=== PATIENT | female | born 1945 | race Caucasian/White ===

== ENCOUNTER 2017-12-08 17:20 | Emergency (ER) | payer MEDICARE, BC ==
[2017-12-08 17:35] VITALS: BP 172/78
--- NOTE | 2017-12-08 17:43 | UC ---
Complaint Female HPI - HPI Summary HPI Summary: Pt presents with pain with urination and pink color to her urine first noticed this morning. She has had a UTI in the past, but this was many years ago. No hx of kidney stone. Denies fever, chills, recent illness, abdominal pain, n/v/d/c. - History Of Current Complaint Chief Complaint: UCGU Stated Complaint: URINARY COMPLAINT Time Seen by Provider: 12/08/17 17:42 Hx Obtained From: Patient Onset/Duration: Sudden Onset Timing: Constant Severity Initially: Moderate Severity Currently: Moderate Pain Intensity: 7 Pain Scale Used: 0-10 Numeric Character: Sharp, Burning - Allergies/Home Medications Allergies/Adverse Reactions: Allergies Allergy/AdvReac Type Severity Reaction Status Date / Time fish oil Allergy Anaphylatic Verified 12/08/17 18:00 Shock latex Allergy Blisters Verified 12/08/17 18:00 reserpine Allergy Rash Verified 12/08/17 18:00 sulfamethoxazole Allergy Rash Verified 12/08/17 18:00 [From Bactrim] trimethoprim [From Bactrim] Allergy Rash Verified 12/08/17 18:00 adhesives Allergy Intermediate Blisters Uncoded 12/08/17 18:00 Home Medications: Home Medications Hydrochlorothiazide TAB* [Hydrodiuril TAB*] 25 mg PO DAILY 12/08/17 [History Confirmed 12/08/17] PMH/Surg Hx/FS Hx/Imm Hx Endocrine History: Dyslipidemia Cardiovascular History: Hypertension GI/ History: Gastroesophageal Reflux - Surgical History Surgical History: Yes Surgery Procedure, Year, and Place: hysterectomy d/t fibroids. arthroscopic left knee. tumor right hip removed--benign - Family History Known Family History: Positive: Hypertension - Social History Occupation: Retired Lives: With Family Alcohol Use: None Substance Use Type: None Smoking Status (MU): Never Smoked Tobacco Review of Systems Constitutional: Negative Skin: Negative Respiratory: Negative Cardiovascular: Negative Gastrointestinal: Negative Genitourinary: Dysuria, Hematuria, Frequency Neurological: Negative Psychological: Negative All Other Systems Reviewed And Are Negative: Yes Physical Exam - Summary Physical Exam Summary: GENERAL: NAD. WDWN. No pain distress. SKIN: No rashes, sores, ulcers, masses, lesions. NECK: Supple. Nontender. No lymphadenopathy. CHEST: CTAB. No r/r/w. No accessory muscle use. Breathing comfortably and in no distress. CV: RRR. Without m/r/g. Pulses intact. Brisk cap refill. ABDOMEN: Soft. NTTP. No distention or guarding. No organomegaly. No CVA tenderness. Bowel sounds present x4. NEURO: Alert. CN II-XII grossly intact. PSYCH: Age appropriate behavior. Triage Information Reviewed: Yes Vital Signs: Initial Vital Signs Temp 99.2 F 12/08/17 17:32 Pulse 81 12/08/17 17:32 Resp 14 12/08/17 17:32 BP 172/78 12/08/17 17:32 Pulse Ox 100 12/08/17 17:32 Complaint Female Dx - Course Course Of Treatment: UA shows 2+ protein, 3+ blood, and 3+ leuks. Will treat with macrobid and call with urine culture results. - Differential Dx/Diagnosis Provider Diagnoses: UTI Discharge - Sign-Out/Discharge Documenting (check all that apply): Discharge - Discharge Plan Condition: Stable Disposition: HOME Prescriptions: Nitrofurantoin Macrocrystals* [Macrodantin*] 100 mg PO BID #10 cap Patient Education Materials: Urinary Tract Infection in Women (DC) Referrals: Matt Hollis MD [Primary Care Provider] - Additional Instructions: If you develop a fever, shortness of breath, chest pain, new or worsening symptoms - please call your PCP or go to the ED. Your blood pressure was high at todays visit. Please see your primary provider within 4 weeks for recheck and re-evaluation. - Billing Disposition and Condition Condition: STABLE Disposition: HOME
[2017-12-08] MEDS ORDERED: Nitrofurantoin Macrocrystals* 50 MG CAP PO ONE (18:04)
== END 2017-12-08 18:11 | disposition home or self-care (01) ==
LOC: UCCORT 17:20
DX: N39.0 Urinary tract infection, site not specified (principal); Z88.2 Allergy status to sulfonamides; Z88.8 Allergy status to other drugs, medicaments and biological substances
CPT/HCPCS: 81003; 87086; 99212; A9270-GY; G0463

== ENCOUNTER 2019-03-12 14:06 | Emergency (ER) | payer MEDICARE, BC ==
[2019-03-12 14:32] VITALS: BP 131/67
--- NOTE | 2019-03-12 14:39 | UC ---
Skin Complaint HPI - HPI Summary HPI Summary: Pt presents with c/o itchy, tender insect bite under left upper arm. Pt c/o of enlarging red washoe with central clearing. Pt was gardening on 03/08/19 and was bite on same day. Unsure what bit her. - History of Current Complaint Chief Complaint: UCSkin Time Seen by Provider: 03/12/19 14:33 Stated Complaint: SKIN CONCERN LT ARM-INSECT BITE Hx Obtained From: Patient ?: No Onset/Duration: Sudden Onset, Lasting Days, Still Present Skin Exposure Onset/Duration: Days Ago Timing: Constant Onset Severity: Mild Current Severity: Mild Pain Intensity: 3 Location: Discrete - left upper arm near armpit Character: Pruritus, Redness Aggravating Factor(s): Nothing Alleviating Factor(s): Nothing Associated Signs & Symptoms: Positive: Rash Related History: Insect Bite/Sting - Allergy/Home Medications Allergies/Adverse Reactions: Allergies Allergy/AdvReac Type Severity Reaction Status Date / Time fish oil Allergy Anaphylatic Verified 03/12/19 14:27 Shock latex Allergy Blisters Verified 03/12/19 14:27 reserpine Allergy Rash Verified 03/12/19 14:27 sulfamethoxazole Allergy Rash Verified 03/12/19 14:27 [From Bactrim] trimethoprim [From Bactrim] Allergy Rash Verified 03/12/19 14:27 adhesives Allergy Intermediate Blisters Uncoded 03/12/19 14:27 PMH/Surg Hx/FS Hx/Imm Hx Previously Healthy: Yes - Surgical History Surgical History: Yes Surgery Procedure, Year, and Place: hysterectomy d/t fibroids. arthroscopic left knee. tumor right hip removed--benign - Family History Known Family History: Positive: Hypertension - Social History Occupation: Retired Lives: With Family Alcohol Use: None Substance Use Type: None Smoking Status (MU): Former Smoker Type: Cigarettes Length of Time of Smoking/Using Tobacco: 2 PPD X 3 Years Have You Smoked in the Last Year: No When Did the Patient Quit Smoking/Using Tobacco: 1966 - Immunization History Vaccination Up to Date: Yes Review of Systems All Other Systems Reviewed And Are Negative: Yes Constitutional: Positive: Negative Skin: Positive: Rash Eyes: Positive: Negative ENT: Positive: Negative Respiratory: Positive: Negative Cardiovascular: Positive: Negative Gastrointestinal: Positive: Negative Genitourinary: Positive: Negative Motor: Positive: Negative Neurovascular: Positive: Negative Musculoskeletal: Positive: Negative Neurological: Positive: Negative Psychological: Positive: Negative Is Patient Immunocompromised?: No Physical Exam Triage Information Reviewed: Yes Appearance: Well-Appearing Vital Signs: Initial Vital Signs Temp 98.3 F 03/12/19 14:20 Pulse 83 03/12/19 14:20 Resp 16 03/12/19 14:20 BP 131/67 03/12/19 14:20 Pulse Ox 99 03/12/19 14:20 Vital Signs Reviewed: Yes Eye Exam: Normal ENT Exam: Normal ENT: Positive: Hearing grossly normal Dental Exam: Normal Neck exam: Normal Respiratory: Positive: No respiratory distress Musculoskeletal Exam: Normal Neurological Exam: Normal Psychological Exam: Normal Skin Exam: Other - erythematous circular area under upper left arm/humerus with central clearing and and mild raised red center. pt c/o that area is very "itchy " and mildly tender. Course/Dx - Differential Diagnoses - Skin Complaint Differential Diagnoses: Tick Born Illness, Urticaria - Diagnoses Provider Diagnosis: Insect bite, Cellulitis of left arm Discharge - Sign-Out/Discharge Documenting (check all that apply): Patient Departure All imaging exams completed and their final reports reviewed: No Studies - Discharge Plan Condition: Stable Disposition: HOME Prescriptions: DOXYcycline CAP(*) [DOXYcycline 100MG CAP(*)] 100 mg PO Q12H #28 cap Patient Education Materials: Antihistamine (By mouth), Cellulitis (ED), Insect Bite or Sting (ED) Referrals: Matt Hollis MD [Primary Care Provider] - If Needed - Billing Disposition and Condition Condition: STABLE Disposition: Home
== END 2019-03-12 14:46 | disposition home or self-care (01) ==
LOC: UCCORT 14:06
DX: S40.862A Insect bite (nonvenomous) of left upper arm, initial encounter (principal); L03.114 Cellulitis of left upper limb; W57.XXXA Bitten or stung by nonvenomous insect and other nonvenomous arthropods, initial encounter; Y93.H2 Activity, gardening and landscaping; Y92.9 Unspecified place or not applicable; Z87.891 Personal history of nicotine dependence
CPT/HCPCS: 99212; G0463

== ENCOUNTER 2019-05-03 17:12 | Emergency (ER) | payer MEDICARE, BC ==
--- NOTE | 2019-05-03 17:55 | UC ---
Back Pain HPI - HPI Summary HPI Summary: 2 days ago, pt tripped and fell backwards onto a barbell. she is c/o pain in her mid and low back where she landed. she has taken Tylenol and a muscle relaxer which has helped. - History of Current Complaint Chief Complaint: UCBackPain Stated Complaint: LOWER BACK PAIN Time Seen by Provider: 05/03/19 17:21 Hx Obtained From: Patient Onset/Duration: Sudden Onset Timing: Constant Pain Intensity: 4 Aggravating Factor(s): Movement Associated Signs And Symptoms: Positive: Other - no saddle anesthesia. Negative : Weakness, Numbness, Tingling, Abdominal Pain, Flank Pain, Bladder Incontinence , Bowel Incontinence - Risk Factors Cauda Equina Risk Factors: Negative Epidural Abscess Risk Factors: Negative - Allergies/Home Medications Allergies/Adverse Reactions: Allergies Allergy/AdvReac Type Severity Reaction Status Date / Time fish oil Allergy Anaphylatic Verified 05/03/19 17:22 Shock latex Allergy Blisters Verified 05/03/19 17:22 reserpine Allergy Rash Verified 05/03/19 17:22 sulfamethoxazole Allergy Rash Verified 05/03/19 17:22 [From Bactrim] trimethoprim [From Bactrim] Allergy Rash Verified 05/03/19 17:22 adhesives Allergy Intermediate Blisters Uncoded 05/03/19 17:22 Home Medications: Home Medications tiZANidine TAB* [Zanaflex TAB*] 2 mg PO DAILY 05/03/19 [History Confirmed ] PMH/Surg Hx/FS Hx/Imm Hx - Additional Past Medical History Additional PMH: neck pain Cardiovascular History: Hypertension GI/ History: Gastroesophageal Reflux - Surgical History Surgical History: Yes Surgery Procedure, Year, and Place: hysterectomy d/t fibroids. arthroscopic left knee. tumor right hip removed--benign - Family History Known Family History: Positive: Hypertension - Social History Lives: With Family Alcohol Use: None Substance Use Type: None Smoking Status (MU): Former Smoker Type: Cigarettes Length of Time of Smoking/Using Tobacco: 2 PPD X 3 Years Have You Smoked in the Last Year: No When Did the Patient Quit Smoking/Using Tobacco: 1966 - Immunization History Vaccination Up to Date: Yes Review of Systems All Other Systems Reviewed And Are Negative: No Constitutional: Negative: Fever, Chills Skin: Negative: Rash Gastrointestinal: Negative: Abdominal Pain Motor: Positive: Decreased ROM - low back. Negative: Weakness Musculoskeletal: Negative: Myalgia Neurological: Negative: Paresthesia, Numbness Physical Exam Triage Information Reviewed: Yes Appearance: Well-Appearing Vital Signs: Initial Vital Signs Temp 98.4 F 05/03/19 17:24 Pulse 84 05/03/19 17:24 Resp 16 05/03/19 17:24 BP 143/80 05/03/19 17:24 Pulse Ox 99 05/03/19 17:24 Vital Signs Reviewed: Yes Eyes: Positive: Conjunctiva Clear Neck: Positive: Supple, Nontender, No Lymphadenopathy Respiratory: Positive: Lungs clear, Normal breath sounds Cardiovascular: Positive: RRR, No Murmur Abdomen Description: Positive: Nontender, No Organomegaly, Soft. Negative: Pulsatile Mass Musculoskeletal: Positive: Other: - neck/back=no gross deformity, swelling or discoloration. tender over lower throacic and lumbar regions. rom limited due to pain. 5/5 strength, 2+ reflexes and sesastion intactx4. no saddle anesthesia. staedy gait. Diagnostics - Laboratory Lab Results: u/a=trace leuks. no blood. culture pending. - Radiology No standard instances Radiology Interpretation Completed By: ED Physician - t spine=deg changes. l spine=spondyolisthesis L4/5, deg changes. Back Pain Course/Dx - Course Course Of Treatment: xra s d/w Dr Zazueta. CT lumbar spine ordered and pt care transferred to Dr Zazueta at 18:27. - Differential Dx/Diagnosis Differential Diagnosis/HQI/PQRI: Other - non toxic. no acute abdomen. no blood in urine. no concern for cauda equina. Provider Diagnosis: Back pain Discharge - Sign-Out/Discharge Documenting (check all that apply): Sign-Out Patient Signing out patient TO: Savanna Zazueta All imaging exams completed and their final reports reviewed: No - Discharge Plan Referrals: Matt Hollis MD [Primary Care Provider] - - Attestation Statements Provider Attestation: I was available for consult. This patient was seen by the [facility]. The patient was not presented to, seen by, or examined by me. -Floyd
[2019-05-03 20:07] VITALS: BP 155/83
[2019-05-03] MEDS ORDERED: traMADol TAB* 50 MG PO ONE (20:43)
--- NOTE | 2019-05-03 21:09 | UC ---
- Progress Note Progress Note: Patient was received in signout from Beverly Starkey awaiting her CT report patient had a mechanical fall several days ago and has ongoing pain in her mid low back. X-ray was concerning for subluxation of L4-L5. CT shows a transverse nondisplaced fracture of the no concern for acute injury L4-L5. Reviewed with patient. We'll discharge home with tramadol. Patient follow-up with PCP. Strict rest precautions related to narcotics. Patient comfortable and plan. Patient Name: KARI TREADWELL Medical Record#: [id number] Ordering Physician: Savanna Zazueta MD Acct.#: [id number] : 1945 Age: 73 Sex: F Location: [facility] Exam Date: 05/03/191828 ADM Status: [facility] ER Order Information: CT SPINE LUMBAR W/O Accession Number: [id number] CPT: 54667 EXAM: CT Lumbar Spine Without Contrast EXAM DATE/TIME: 05/03/2019 7:24 PM CLINICAL HISTORY: 73 years old, female; Injury or trauma; Fall; Initial encounter; Blunt trauma (contusions or hematomas); Additional info: PT fell backwards 2 days ago, striking her RT mid to lower back on a metal weight bar, pain RT sided low back TECHNIQUE: Imaging protocol: Computed tomography images of the lumbar spine without contrast. Coronal and sagittal reformatted images were created and reviewed. Radiation optimization: All CT scans at this facility use at least one of these dose optimization techniques: automated exposure control; mA and/or kV adjustment per patient size (includes targeted exams where dose is matched to clinical indication); or iterative reconstruction. COMPARISON: [facility] CT SPINE LUMBA 05/03/2019 7:19 PM FINDINGS: Vertebrae: Nondisplaced fracture of the right L1 transverse process. L5 vertebral body hemangioma without aggressive features. Post procedure changes of the right ilium. Diffuse degenerative changes of the lumbar facet joints. Anterolisthesis at the L4-5 level without identified pars defects. No aggressive lesion. Discs/Spinal canal/Neural foramina: Mild disc space narrowing at the L4-5 level with bulging central disc and mild compromise of the spinal canal. Mild disc space narrowing at the L5-S1 level with bulging central disc and mild compromise of the spinal canal. Gallbladder and bile ducts: Cholecystectomy clips. No biliary dilatation. Kidneys and ureters: Small left renal cyst measuring less than 1 cm. No additional imaging or followup required based on appearance. Vasculature: Atherosclerotic calcification without aneurysm. Soft tissues: Unremarkable. IMPRESSION: Nondisplaced fracture of the right L1 transverse process. Multilevel degenerative changes, most pronounced at L4-5 and L5-S1. To contact [facility] with a general question: [facility] - [phone] For direct physician to physician contact: Physician Hotline - [phone] [facility] ([facility] Facility ID #[id number]) <Electronically signed by Diego Summers MD in OV> 05/03/192025 This report is only to be considered final once signed by the Provider(s) as displayed in the "<Electronically Signed by >" field (s). Absence of a signature indicates the report is in a draft status and still needs to be finalized. In the event this document was created by someone other than the signing Provider, the individual initiating the document will be listed in the "Entered by:" or "Dictated by:" talamantes. 1 of 2 Course/Dx - Diagnoses Provider Diagnoses: Back pain Discharge ED - Sign-Out/Discharge Documenting (check all that apply): Patient Departure All imaging exams completed and their final reports reviewed: No - Discharge Plan Condition: Stable Disposition: HOME Prescriptions: traMADol TAB* [Ultram*] 25 mg PO Q8H PRN #10 tab MDD 3 PRN Reason: severe pain Patient Education Materials: Thoracolumbar Fracture (ED) Referrals: Matt Hollis MD [Primary Care Provider] - (Call Sunday for an appointment) Additional Instructions: As discussed, you have a nondisplaced break to the side of the bones in your back. This does not require any special surgical intervention. However, because of these you may have ongoing pain for 2-3 weeks. The right following is recommended: - Okay to take Tylenol every 6-8 hours as needed for pain. - Okay to take tramadol for severe pain. This medication is sedating. Do not drive, operate equipment, or drink alcohol and she was medication effect shoe. - do NOT take Tramadol AND muscle relaxer at the same time - this may cause excessive drowsiness - placing a pillow between your knees when you sleep may give you some relief - Okay to apply heat to the area of injury. [id number] muscles are warm slow gentle stretching exercises may be helpful. - Contact your primary care doctor on Sunday to schedule follow-up appointment this coming week. If you have any questions or concerns (ex increased pain, leg numbness or tingling, difficulty with urination) is recommended you prescribed for further treatment and evaluation. - Billing Disposition and Condition Condition: STABLE Disposition: Home
--- NOTE | 2019-05-04 09:53 | UC ---
- Progress Note Progress Note: X-ray reports reviewed, no change in treatment plan. - Results/Orders Results/Orders: L-S Spine: IMPRESSION: OSTEOPENIA. DEGENERATIVE DISC DISEASE AND OSTEOARTHRITIS. Thoracic spine: IMPRESSION: OSTEOPENIA. DEGENERATIVE DISC DISEASE. Course/Dx - Diagnoses Provider Diagnoses: Back pain Discharge - Sign-Out/Discharge Documenting (check all that apply): Post-Discharge Follow Up All imaging exams completed and their final reports reviewed: Yes - Discharge Plan Condition: Stable Disposition: HOME Prescriptions: traMADol TAB* [Ultram*] 25 mg PO Q8H PRN #10 tab MDD 3 PRN Reason: severe pain Patient Education Materials: Thoracolumbar Fracture (ED) Referrals: Matt Hollis MD [Primary Care Provider] - (Call Sunday for an appointment) Additional Instructions: As discussed, you have a nondisplaced break to the side of the bones in your back. This does not require any special surgical intervention. However, because of these you may have ongoing pain for 2-3 weeks. The right following is recommended: - Okay to take Tylenol every 6-8 hours as needed for pain. - Okay to take tramadol for severe pain. This medication is sedating. Do not drive, operate equipment, or drink alcohol and she was medication effect shoe. - do NOT take Tramadol AND muscle relaxer at the same time - this may cause excessive drowsiness - placing a pillow between your knees when you sleep may give you some relief - Okay to apply heat to the area of injury. [id number] muscles are warm slow gentle stretching exercises may be helpful. - Contact your primary care doctor on Sunday to schedule follow-up appointment this coming week. If you have any questions or concerns (ex increased pain, leg numbness or tingling, difficulty with urination) is recommended you prescribed for further treatment and evaluation. - Billing Disposition and Condition Condition: STABLE Disposition: Home
== END 2019-05-03 20:59 | disposition home or self-care (01) ==
LOC: UCCORT 17:12
DX: M54.5 Low back pain (principal); I10 Essential (primary) hypertension; Z87.891 Personal history of nicotine dependence
CPT/HCPCS: 72070; 72100; 72131; 81003; 87086; 99212; A9270-GY; G0463

== ENCOUNTER 2019-10-31 12:47 | Emergency (ER) | payer MEDICARE, BC ==
[2019-10-31 13:36] VITALS: BP 172/90
--- NOTE | 2019-10-31 14:53 | UC ---
Complaint Female HPI - HPI Summary HPI Summary: 73-year-old female presents with 3 day history of dysuria, frequency, and urgency. Associated with some mild suprapubic and lower back discomfort. Denies fever, chills, flank pain, nausea, vomiting, hematuria, vaginal discharge or itching. - History Of Current Complaint Chief Complaint: UCGU Stated Complaint: URINARY COMPLAINT Time Seen by Provider: 10/31/19 14:36 Hx Obtained From: Patient Pain Intensity: 0 - Allergies/Home Medications Allergies/Adverse Reactions: Allergies Allergy/AdvReac Type Severity Reaction Status Date / Time fish oil Allergy Anaphylatic Verified 10/31/19 13:36 Shock latex Allergy Blisters Verified 10/31/19 13:36 reserpine Allergy Rash Verified 10/31/19 13:36 sulfamethoxazole Allergy Rash Verified 10/31/19 13:36 [From Bactrim] trimethoprim [From Bactrim] Allergy Rash Verified 10/31/19 13:36 adhesives Allergy Intermediate Blisters Uncoded 10/31/19 13:36 PMH/Surg Hx/FS Hx/Imm Hx Endocrine History: Dyslipidemia Cardiovascular History: Hypertension GI/ History: Gastroesophageal Reflux Psychological History: Depression - Surgical History Surgical History: Yes Surgery Procedure, Year, and Place: hysterectomy d/t fibroids. arthroscopic left knee. tumor right hip removed--benign - Family History Known Family History: Positive: Hypertension - Social History Occupation: Retired Lives: With Family Alcohol Use: None Substance Use Type: None Smoking Status (MU): Former Smoker Type: Cigarettes Length of Time of Smoking/Using Tobacco: 2 PPD X 3 Years Have You Smoked in the Last Year: No When Did the Patient Quit Smoking/Using Tobacco: 1966 - Immunization History Vaccination Up to Date: Yes Review of Systems All Other Systems Reviewed And Are Negative: Yes Constitutional: Negative: Fever, Chills Respiratory: Positive: Negative Cardiovascular: Positive: Negative Gastrointestinal: Positive: Abdominal Pain - Suprapubic. Negative: Vomiting, Nausea Genitourinary: Positive: Dysuria, Frequency, Urgency. Negative: Hematuria, Vaginal/Penile Itching, Vaginal/Penile Discharge, Abnormal Bleeding Musculoskeletal: Positive: Negative Neurological/Mental Status: Positive: Negative Is Patient Immunocompromised?: No Physical Exam - Summary Physical Exam Summary: GENERAL APPEARANCE: Well developed, well nourished, alert and cooperative, and appears to be in no acute distress. CARDIAC: Normal S1 and S2. No S3, S4 or murmurs. Rhythm is regular. There is no peripheral edema, cyanosis or pallor. Extremities are warm and well perfused. Capillary refill is less than 2 seconds. Peripheral pulses intact. LUNGS: Clear to auscultation without rales, rhonchi, wheezing or diminished breath sounds. ABDOMEN: Positive bowel sounds. Soft, nondistend. Mild suprapubic tenderness. No guarding or rebound. No masses or hepatosplenomegally. No CVA tenderness. MUSKULOSKELETAL: ROM intact to all extremities. No joint erythema or tenderness. Normal muscular development. Normal gait. SKIN: Skin normal color, texture and turgor with no lesions or eruptions. Triage Information Reviewed: Yes Vital Signs: Initial Vital Signs Temp 98.8 F 10/31/19 13:30 Pulse 87 10/31/19 13:30 Resp 14 10/31/19 13:30 BP 172/90 10/31/19 13:30 Pulse Ox 100 10/31/19 13:30 Vital Signs Reviewed: Yes Complaint Female Dx - Course Course Of Treatment: 73-year-old female presents with 3 day history of dysuria, frequency, and urgency. Associated with some mild suprapubic and lower back discomfort. Denies fever, chills, flank pain, nausea, vomiting, hematuria, vaginal discharge or itching. Afebrile. Hypertensive otherwise vital signs stable. Patient had mild suprapubic tenderness without guarding or rebound, no CVA tenderness, and otherwise unremarkable exam. [id number] urinalysis showed 1 + leukocyte esterase, 3+ blood, 1+ bilirubin, 1+ ketones, and 3+ protein. Reviewed results with the patient. Discussed with patient that based on her symptoms and the urinalysis results will treat her empirically for urinary tract infection with Macrobid 100 mg twice a day 5 days and provide her with Pyridium 100 mg 3 times a day next 2 days to help with the discomfort. She is to follow-up with her primary care provider in 3-5 days if symptoms are not improving. Anticipatory guidance and warning symptoms were reviewed with the patient. Verbalizes understanding and agrees with plan of care. - Differential Dx/Diagnosis Differential Diagnosis/HQI/PQRI: Renal Colic, Urinary Tract Infection, Other - Vulvogaginitis Provider Diagnosis: UTI (urinary tract infection) Discharge ED - Sign-Out/Discharge Documenting (check all that apply): Patient Departure All imaging exams completed and their final reports reviewed: No Studies - Discharge Plan Condition: Stable Disposition: HOME Prescriptions: Nitrofurantoin Monohyd/M-Cryst [Macrobid 100 mg Capsule] 100 mg PO BID #10 cap Phenazopyridine TAB* [Pyridium 100 mg TAB*] 100 mg PO TID #6 tab Patient Education Materials: Urinary Tract Infection in Women (ED) Referrals: Matt Hollis MD [Primary Care Provider] - 3 Days Additional Instructions: Your urine test in the clinic today is suggestive of a urinary tract infection. We will start you on an antibiotic to treat for the infection. We will also send a urine culture today to see what bacteria grow out and make sure the antibiotic you were prescribed is appropriate to treat the infection. It will take 48-72 hours to get these results. We will contact you if there is any change in your treatment plan. Start Macrobid 1 tablet twice a day for 5 days. Take Pyridium 1 tablet every 8 hours for next 2 days to help with the discomfort. This medication will turn your urine an orange color. Drink plenty of fluids. To help prevent urinary tract infections: 1) Be sure to wipe from front to back. 2) Urinate immediately after any sexual intercourse. 3) Avoid taking bubble baths. Follow up with your primary care provider in 3-5 days if symptoms persist. Seek immediate medical attention in the emergency room if you develop fever greater than 100.5 F, have severe abdominal pain, persistent vomiting, or any worsening of symptoms. - Billing Disposition and Condition Condition: STABLE Disposition: Home - Attestation Statements Provider Attestation: This patient was not seen by me. I was available for consult. Chart reviewed. [email or web address]
== END 2019-10-31 15:04 | disposition home or self-care (01) ==
LOC: UCCORT 12:47
DX: N39.0 Urinary tract infection, site not specified (principal); I10 Essential (primary) hypertension; Z88.2 Allergy status to sulfonamides; Z91.018 Allergy to other foods; Z91.040 Latex allergy status; Z88.8 Allergy status to other drugs, medicaments and biological substances; Z91.09 Other allergy status, other than to drugs and biological substances; Z87.891 Personal history of nicotine dependence
CPT/HCPCS: 81003; 87077; 87086; 87186; 99212; G0463